=== PATIENT | male | born 1985 | race Two or more races ===

== ENCOUNTER 2017-06-25 11:14 | Emergency (ER) | payer MEDICAID ==
[~2017-06-25] VITALS: Wt 55.6 kg
[2017-06-25] MEDS ORDERED: KETOROLAC 60 MG INJ IM STA (12:44)
--- NOTE | 2017-06-25 12:44 | ERD ---
ER Documentation Chief Complaint Chief Complaint RIGHT SHOULDER PAIN X4 DAYS, NO INJURY, NO NUMBNESS HPI 31-year-old male who presents emergency department for nontraumatic right shoulder pain for 5 days. Stated that the pain is worse whenever he lies on his right side or put pressure on his right shoulder. His headache, dizziness, blurred vision, neck pain, throat pain, chest pain, back pain, abdominal pain, nausea, vomiting, constipation, diarrhea, urinary symptoms, loss of bowel and bladder control, changes in bowel and bladder habits , difficulty breathing when lying flat, recent long travel, trauma, injury, falls, recent antibiotic use in the last 3 months, fever, chills. No known drug allergies. 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 No surgical history. Does not take any prescription medication at this time. 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 Smokes cigarettes occasionally. Also stated that he uses medical marijuana occasionally. Denies use of alcoholic beverages, use of illegal drugs. ROS All systems reviewed and are negative except as per history of present illness. Medications Home Meds Active Scripts Cyclobenzaprine Hcl* (Cyclobenzaprine Hcl*) 10 Mg Tablet, 10 MG PO Q12 Y for MUSCLE SPASMS, #15 TAB Prov:PASILABAN,JESSYAR F 06/25/17 Ibuprofen* (Motrin*) 600 Mg Tab, 600 MG PO Q8, #30 TAB Prov:JUDITHILABANJESSYAR F 06/25/17 Allergies Allergies: Coded Allergies: No Known Allergy (Unverified , 06/25/17) Physical Exam Vitals Vital Signs Date Time Temp Pulse Resp B/P Pulse Ox O2 Delivery O2 Flow Rate FiO2 06/25/17 11:17 97.8 102 17 139/79 98 Physical Exam Const: [] Head: Atraumatic Eyes: Normal Conjunctiva ENT: Normal External Ears, Nose and Mouth. Neck: Full range of motion..~ No meningismus. Resp: Clear to auscultation bilaterally Cardio: Regular rate and rhythm, no murmurs Abd: Soft, non tender, non distended. Normal bowel sounds Skin: No petechiae or rashes Back: No midline or flank tenderness Ext: No cyanosis, or edema. Left shoulder is unremarkable. Right shoulder has no deformity and is good and full range of motion. Skin on right shoulder is not warm to touch. No discoloration. Right elbow is unremarkable. Right wrist is stable and unremarkable. Right hand is good and full function. Good right radial pulse. C-spine/T-spine/L-spine are unremarkable. Neur: Awake and alert Psych: Normal Mood and Affect Results 24 hrs Current Medications Medications (Trade) Dose Ordered Sig/Curt Route PRN Reason Start Time Stop Time Status Last Admin Dose Admin Ketorolac Tromethamine (Toradol) 60 mg ONCE STAT IM 06/25/17 12:44 06/25/17 12:46 DC 06/25/17 12:51 Procedures/MDM 31-year-old male who presents emergency department for nontraumatic right shoulder pain for 5 days. Stated that the pain is worse whenever he lies on his right side or put pressure on his right shoulder. His headache, dizziness, blurred vision, neck pain, throat pain, chest pain, back pain, abdominal pain, nausea, vomiting, constipation, diarrhea, urinary symptoms, loss of bowel and bladder control, changes in bowel and bladder habits , difficulty breathing when lying flat, recent long travel, trauma, injury, falls, recent antibiotic use in the last 3 months, fever, chills. No known drug allergies. 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 No surgical history. Does not take any prescription medication at this time. 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 Smokes cigarettes occasionally. Also stated that he uses medical marijuana occasionally. Denies use of alcoholic beverages, use of illegal drugs. Physical exam: Left shoulder is unremarkable. Right shoulder has no deformity and is good and full range of motion. Skin on right shoulder is not warm to touch. No discoloration. Right elbow is unremarkable. Right wrist is stable and unremarkable. Right hand is good and full function. Good right radial pulse. C-spine/T-spine/L-spine are unremarkable. Disease process was explained to the patient. Patient verbalized understanding and agreed with the plan of care. Treatment: Toradol IM. Reevaluation: Denies headache, dizziness, blurry vision, neck pain, shoulder pain, chest pain, back pain, abdominal pain, nausea, vomiting. No episode of emesis in the emergency department. Alert and oriented 4. Speaks full and clear sentences. Respirations even and unlabored. Lung sounds clear to auscultation. Active bowel sounds. There is no right upper/right lower/ epigastric/left upper/left lower abdominal tenderness and light and deep palpation. Negative on Rovsings sign. Negative Dru sign. No peritoneal signs. Ambulatory with steady gait. No neurovascular deficits. No neurological deficits. Differential diagnosis: Septic joint versus bursitis versus shoulder pain versus musculoskeletal pain I have low suspicion for septic joint. Final diagnosis: Nontraumatic right shoulder pain Prescription: Motrin. Flexeril. Follow-up with PCP in the next 24-48 hours. Come back here in the emergency department for any new symptoms or any worsening of symptoms. All questions and concerns are answered. Patient verbalized understanding and agreed with the plan of care. Hemodynamically stable on discharge. Departure Diagnosis: Primary Impression: Shoulder pain Condition: Stable Additional Instructions: Follow-up with PCP in the next 24-48 hours. Come back here in the emergency department for any new symptoms or any worsening of symptoms. All questions and concerns are answered. Patient verbalized understanding and agreed with the plan of care. ROGERIO JACKSON Jun 25, 2017 12:44
[2017-06-25] MEDS ORDERED: CYCL-319 PO (12:46)
[2017-06-25] MEDS ORDERED: IBUP-1542 PO (12:46)
== END 2017-06-25 13:08 | disposition home or self-care (01) ==
LOC: FTE 11:14
DX: M25.511 Pain in right shoulder (principal)
CPT/HCPCS: 96372; J1885; Z7502